=== PATIENT | female | born 1945 | race Caucasian/White ===

== ENCOUNTER → 2020-10-05 | Outpatient (CLI) | payer MEDICARE ==
[~2020-10-05] MED LIST: ASPIRIN EC81 MG PO; BONIVA150 MG PO; BUSPAR 5MG TABLE5 MG PO; DEXILANT60 MG PO; HYDROCHLOROTHIA25 MG PO; HYDROCODON-ACE1 EAC6 PO; HYDROXYZINE HCL25 MG PO; JANUVIA100 MG PO; MELOXICAM7.5 MG PO; PRAVASTATIN SOD80 MG PO; SYMBICORT 160-1 INHA INH; TOPROL XL25 MG PO; TOVIAZ8 MG PO; VENTOLIN HFA 66.7 GM INH; VESICARE10 MG PO
== END ==
LOC: HEART CORB 09:29
DX: I10 Essential (primary) hypertension (principal); R07.9 Chest pain, unspecified; R06.02 Shortness of breath; I08.2 Rheumatic disorders of both aortic and tricuspid valves; R93.1 Abnormal findings on diagnostic imaging of heart and coronary circulation
CPT/HCPCS: 93306

== ENCOUNTER → 2020-10-31 | Outpatient (CLI) | payer MEDICARE ==
[~2020-10-31] MED LIST changes: +CRESTOR40 MG PO; +LEVOCETIRIZINE D5 MG PO; +LOSARTAN POTAS100 MG PO; +MYRBETRIQ50 MG PO; +NAMZARIC 28 MG1 EACH PO; +VITAMIN D21250 MCG PO
== END ==
LOC: KOH-I 10-19 13:30
DX: M54.5 Low back pain (principal); M43.16 Spondylolisthesis, lumbar region; M48.061 Spinal stenosis, lumbar region without neurogenic claudication; M48.07 Spinal stenosis, lumbosacral region; N20.0 Calculus of kidney; Z98.1 Arthrodesis status
CPT/HCPCS: 72131

== ENCOUNTER → 2020-11-02 | Outpatient (CLI) | payer MEDICARE | LOC: HEART CORB 09:00 | DX: R94.31 Abnormal electrocardiogram [ECG] [EKG] (principal); R07.9 Chest pain, unspecified; I10 Essential (primary) hypertension; E78.5 Hyperlipidemia, unspecified | CPT/HCPCS: 78452; A9502; J2785 ==

== ENCOUNTER → 2020-12-15 | Outpatient (CLI) | payer MEDICARE ==
[2020-12-15 13:37] LABS: HEMOGLOBIN 14.1 gm/dl (12.3-15.3); RED BLOOD COUNT 4.76 M/UL (4.00-5.10); WHITE BLOOD COUNT 8.1 K/UL (4.5-11.0)
== END ==
LOC: OPSV2 11:30 → EDSTATUS 11:30 → OPSV2 11:54
PROVIDERS: Orthopaedic Surgery
DX: Z01.818 Encounter for other preprocedural examination (principal); J98.11 Atelectasis
CPT/HCPCS: 36415; 71046; 80048; 83036; 85027; 87081; 87086; 93005

== ENCOUNTER → 2021-02-16 | Outpatient (CLI) | payer MEDICARE | LOC: HEART CORB 12:32 | DX: R42 Dizziness and giddiness (principal) ==